=== PATIENT | male | born 1995 | race Caucasian/White ===

== ENCOUNTER 2017-05-26 09:26 | Inpatient (IN) | payer OTHER ==
[2017-05-26 12:21] VITALS: BMI 22.4
--- NOTE | 2017-05-26 15:35 | HP ---
COWS - Scale Resting Pulse: 1= [place] 81-100 Sweatin=Flushed/Facial Moisture Restless Observation: 1= Difficult to Sit Still Pupil Size: 0= Normal to Room Light Bone or Joint Aches: 2= Severe Diffuse Aches Runny Nose/ Eye Tearin= Runny Nose/Eyes GI Upset > 30mins: 1= Stomach Cramp Tremor Observation: 2= Slight Tremor Visible Yawning Observation: 2= >3x During Session Anxiety or Irritability: 2=Irritable/Anxious Goose Flesh Skin: 3=Piloerection COWS Score: 18 Admission ROS S - HPI Chief Complaint: I need to stop and get my life back. Allergies/Adverse Reactions: Allergies Allergy/AdvReac Type Severity Reaction Status Date / Time No Known Allergies Allergy Verified 05/26/17 15:30 History of Present Illness: Pt is a 21yr old male with a history of oxycodone dependence seeking detox for treatment. Exam Limitations: No Limitations - Ebola screening Have you traveled outside of the country in the last 21 days: No Have you had contact with anyone from an Ebola affected area: No Have you been sick,other than usual withdrawal symptoms: No Do you have a fever: No - Review of Systems Constitutional: Chills, Diaphoresis, Loss of Appetite, Night Sweats, Changes in sleep EENT: reports: Tearing, Nose Congestion Respiratory: reports: No Symptoms reported Cardiac: reports: No Symptoms Reported GI: reports: Constipated, Poor Fluid Intake, Indigestion : reports: No Symptoms Reported Musculoskeletal: reports: Back Pain, Joint Pain, Muscle Pain Integumentary: reports: Flushing, Sweating Neuro: reports: Tingling, Tremors Endocrine: reports: Excessive Sweating, Flushing, Intolerance to Cold, Intolerance to Heat Hematology: reports: No Symptoms Reported Psychiatric: reports: Judgement Intact, Mood/Affect Appropiate, Orientated x3, Agitated, Anxious Other Systems: Reviewed and Negative Patient History - Patient Medical History Hx Anemia: No Hx Asthma: No Hx Chronic Obstructive Pulmonary Disease (COPD): No Hx Cancer: No Hx Cardiac Disorders: No Hx Congestive Heart Failure: No Hx Hypertension: No Hx Hypercholesterolemia: No Hx Pacemaker: No HX Cerebrovascular Accident: No Hx Seizures: No Hx Dementia: No Hx Diabetes: No Hx Gastrointestinal Disorders: No Hx Liver Disease: No Hx Genitourinary Disorders: No Hx Sexually Transmitted Disorders: No Hx Renal Disease (ESRD): No Hx Thyroid Disease: No Hx Human Immunodeficiency Virus (HIV): No (negative) Hx Hepatitis C: No (negative) Hx Depression: Yes Hx Suicide Attempt: No (denies) Hx Bipolar Disorder: No Hx Schizophrenia: No Other Medical History: anxiety/insomnia - Patient Surgical History Past Surgical History: No - PPD History Previous Implant?: Yes Documented Results: Negative w/o proof Implanted On Prior R Admission?: No PPD to be Administered?: Yes - Reproductive History Patient is a Female of Child Bearing Age (11 -55 yrs old): No - Smoking Cessation Smoking history: Current every day smoker Have you smoked in the past 12 months: Yes Aproximately how many cigarettes per day: 20 Hx Chewing Tobacco Use: No Initiated information on smoking cessation: Yes 'Breaking Loose' booklet given: 05/26/17 - Substance & Tx. History Hx Alcohol Use: No Hx Substance Use: Yes Substance Use Type: Opiates Hx Substance Use Treatment: No (never in detox. this is his first time.) - Substances Abused OXYCODONE Route: Oral Frequency: Daily Amount used: 6-7 30MG TABS Age of first use: 18 Date of Last Use: 05/25/17 Family Disease History - Family Disease History Family History: Denies Admission Physical Exam BHS - Vital Signs Vital Signs: Vital Signs - 24 hr 05/26/17 12:19 Temperature 97.4 F L Pulse Rate 83 Respiratory 20 Rate Blood Pressure 120/80 - Physical General Appearance: Yes: Appropriately Dressed, Moderate Distress, Tremorous, Irritable, Sweating, Anxious HEENTM: Yes: Hearing grossly Normal, Normal Voice, Nasal Congestion, Rhinorrhea Respiratory: Yes: Lungs Clear, Normal Breath Sounds, No Respiratory Distress Neck: Yes: Within Normal Limits Breast: Yes: Within Normal Limits Cardiology: Yes: Regular Rhythm, Regular Rate, S1, S2 Abdominal: Yes: Normal Bowel Sounds, Non Tender, Soft Genitourinary: Yes: Within Normal Limits Back: Yes: Normal Inspection Musculoskeletal: Yes: Back pain, Muscle Pain Extremities: Yes: Normal Inspection, Tremors Neurological: Yes: Fully Oriented, Alert, Normal Response Integumentary: Yes: Normal Color, Diaphoresis Lymphatic: Yes: Within Normal Limits - Diagnostic (1) Nicotine dependence Current Visit: Yes Status: Chronic Qualifiers: Nicotine product type: cigarettes Substance use status: uncomplicated Qualified Code(s): F17.210 - Nicotine dependence, cigarettes, uncomplicated (2) Opioid dependence with withdrawal Current Visit: Yes Status: Chronic (3) Insomnia Current Visit: Yes Status: Acute Cleared for Admission [facility] - Detox or Rehab [facility] Level of Care: Medically Managed Detox Regimen/Protocol: Methadone [facility] Breath Alcohol Content Breath Alcohol Content: 0 Urine Drug Screen - Results Drug Screen Negative: No Urine Drug Screen Results: OXY-Oxycodone
[2017-05-26] MEDS ORDERED: MAGNESIUM HYDROX 2400MG/30ML ORAL SUSPENSION 30 ML CUP PO PRN (15:46)
[2017-05-26] MEDS ORDERED: MENTHOL/PHENOL 1 EACH UD MM PRN (15:46)
[2017-05-26] MEDS ORDERED: P-EPHED 60MG/TRIPROLIDI 2.5MG TABLET PO PRN (15:46)
[2017-05-26] MEDS ORDERED: MAGNESIUM CITRATE 300 ML BOTTLE PO PRN (15:46)
[2017-05-26] MEDS ORDERED: LOPERAMIDE HCL 2 MG CAPSULE PO PRN (15:46)
[2017-05-26] MEDS ORDERED: guaiFENesin/D-METHORPHAN HB 10 ML UNIT-DOSE CUPS PO PRN (15:46)
[2017-05-26] MEDS ORDERED: MAG HYDROX/AL HYDROX/SIMETH 30 ML UNIT-DOSE CUP PO PRN (15:46)
[2017-05-26] MEDS ORDERED: IBUPROFEN 400 MG TABLET (FP) PO PRN (15:46)
[2017-05-26] MEDS ORDERED: METHADONE HCL 10 MG TABLET (FOR DETOX USE ONLY) PO ONE ×2 (15:52→23:00)
[2017-05-26] MEDS: ACETAMINOPHEN 325 MG TABLET (FP) PO PRN (17:08)
[2017-05-26] MEDS: diazePAM 5 MG TABLET PO PRN ×2 (17:09→22:04)
[2017-05-26 17:47] LABS: URINE APPEARANCE CLEAR; URINE BILIRUBIN NEGATIVE (NEGATIVE); URINE BLOOD NEGATIVE (NEGATIVE); URINE COLOR YELLOW; URINE GLUCOSE (UA) NEGATIVE (NEGATIVE); URINE KETONE TRACE (NEGATIVE); URINE LEUK ESTERASE NEGATIVE (NEGATIVE); URINE NITRITE NEGATIVE (NEGATIVE); URINE PROTEIN NEGATIVE (NEGATIVE); URINE UROBILINOGEN NEGATIVE mg/dL (0.2-1.0)
[2017-05-26] MEDS: THIAMINE HCL 100 MG TABLET (FP) PO SCH (22:04)
[2017-05-26] MEDS: diphenhydrAMINE HCL 50 MG CAPSULE PO PRN (22:05)
[2017-05-26] MEDS: NICOTINE POLACRILEX 4 MG GUM BUC PRN (23:14)
[2017-05-27] MEDS: diazePAM 5 MG TABLET PO PRN ×4 (05:44→18:40)
--- NOTE | 2017-05-27 08:51 | CONSULT ---
[facility] Psychiatric Consult - Data Date of interview: 05/27/17 Admission source: [facility] Identifying data: This is 21 years old male with nopsychiatric hospiotalization history intoxicated with: Opioids and Nicotine Substance Abuse History: - Smoking Cessation. Smoking history: Current every day smoker. Have you smoked in the past 12 months: Yes. Aproximately how many cigarettes per day: 20. Hx Chewing Tobacco Use: No. Initiated information on smoking cessation: Yes. 'Breaking Loose' booklet given: 05/26/17. - Substance & Tx. History. Hx Alcohol Use: No. Hx Substance Use: Yes. Substance Use Type : Opiates. Hx Substance Use Treatment: No (never in detox. this is his first time.). - Substances Abused. OXYCODONE. Route: Oral. Frequency: Daily. Amount used: 6-7 30MG TABS. Age of first use: 18. Date of Last Use: 05/25/17 Medical History: Denies significant medical issues Psychiatric History: Patient reports unclear Bipolar Disorder Hisotry, reports no medicationsd taking prior to admission Physical/Sexual Abuse/Trauma History: Denies Additional Comment: Observation. Detox Unit Care Protocol Mental Status Exam - Mental Status Exam Alert and Oriented to: Person Cognitive Function: Fair Patient Appearance: Unkempt Mood: Sad Affect: Mood Congruent Patient Behavior: Cooperative Speech Pattern: Appropriate Voice Loudness: Mildly Soft/Quiet Thought Process: Circumstantial Thought Disorder: Being Controlled Hallucinations: Denies Suicidal Ideation: Denies Homicidal Ideation: Denies Insight/Judgement: Fair Sleep: Difficulty falling asleep Appetite: Weight loss Muscle strength/Tone: Mild Hypotonicity Gait/Station: Shuffling Additional Comments: - Smoking Cessation. Smoking history: Current every day smoker. Have you smoked in the past 12 months: Yes. Aproximately how many cigarettes per day: 20. Hx Chewing Tobacco Use: No. Initiated information on smoking cessation: Yes. 'Breaking Loose' booklet given: 05/26/17. - Substance & Tx. History. Hx Alcohol Use: No. Hx Substance Use: Yes. Substance Use Type : Opiates. Hx Substance Use Treatment: No (never in detox. this is his first time.). - Substances Abused. OXYCODONE. Route: Oral. Frequency: Daily. Amount used: 6-7 30MG TABS. Age of first use: 18. Date of Last Use: 05/25/17 Psychiatric Findings - Problem List ([place] 1, 2,3) (1) Nicotine dependence Current Visit: Yes Status: Chronic Qualifiers: Nicotine product type: cigarettes Substance use status: uncomplicated Qualified Code(s): F17.210 - Nicotine dependence, cigarettes, uncomplicated (2) Opioid dependence with withdrawal Current Visit: Yes Status: Chronic (3) Bipolar disorder Current Visit: Yes Status: Suspected (4) Drug-induced mood disorder Current Visit: Yes Status: Acute - Initial Treatment Plan Initial Treatment Plan: Observation. Detox Unit Care Protocol
[2017-05-27] MEDS ORDERED: METHADONE HCL 10 MG TABLET (FOR DETOX USE ONLY) PO ONE (10:00)
[2017-05-27 10:05] LABS: MCH 31.9 pg (25.7-33.7); MCHC 34.6 g/dl (32.0-35.9); MEAN CELL VOLUME 92.3 fl (80-96); MEAN PLT VOLUME 9.9 fl (7.5-11.1); PLATELET COUNT 156 K/MM3 (134-434); RDW 12.5 % (11.9-15.9); WHITE BLOOD COUNT 6.4 K/mm3 (4.0-10.0)
[2017-05-27] MEDS: PRENATAL VITAMINS W/ FOLIC ACID TABLET (FP) PO SCH (10:05)
[2017-05-27] MEDS: NICOTINE 21 MG/24 HOURS TOPICAL PATCH TD SCH (10:06)
[2017-05-27] MEDS: NICOTINE POLACRILEX 4 MG GUM BUC PRN ×3 (10:07→21:00)
[2017-05-27 10:09] LABS: ALBUMIN 4.5 g/dl (3.4-5.0); ANION GAP 6 (8-16); CALCIUM 9.5 mg/dL (8.5-10.1); CO2 30 mmol/L (21-32); GLUCOSE,RANDOM 97 mg/dL (74-106)
[2017-05-27 10:14] LABS: ALK PHOS 72 U/L (45-117); BILIRUBIN,TOTAL 0.5 mg/dL (0.2-1.0); CREATININE 0.8 mg/dL (0.7-1.3); SGOT/AST 21 U/L (15-37); SGPT/ALT 25 U/L (12-78); TOT PROT 7.6 g/dl (6.4-8.2)
--- NOTE | 2017-05-27 10:38 | PN ---
BHS COWS - Scale Resting Pulse: 1= [place] 81-100 Sweatin= Chills/Flushing Restless Observation: 3= Extraneous Movement Pupil Size: 0= Normal to Room Light Bone or Joint Aches: 4=Acute Joint/Muscle Pain Runny Nose/ Eye Tearin= Nasal Congestion GI Upset > 30mins: 0= None Tremor Observation of Outstretched Hands: 1= Tremor [place], Not Seen Yawning Observation: 2= >3x During Session Anxiety or Irritability: 2=Irritable/Anxious Goose Flesh Skin: 0=Smooth Skin COWS Score: 15 BHS Progress Note (SOAP) Subjective: ANXIETY,SWEATS,IRRITABILITY,INTERMITTENT SLEEP Objective: 05/27/17 10:37 Vital Signs 05/27/17 05/27/17 05/27/17 03:30 06:32 09:27 Temperature 96.1 F L 98 F Pulse Rate 65 Respiratory 18 18 Rate Blood Pressure 118/75 Laboratory Last Values WBC 6.4 K/mm3 (4.0-10.0) 05/27/17 06:00 RBC 5.07 M/mm3 (4.00-5.60) 05/27/17 06:00 Hgb 16.2 GM/dL (11.7-16.9) 05/27/17 06:00 Hct 46.8 % (35.4-49) 05/27/17 06:00 MCV 92.3 fl (80-96) 05/27/17 06:00 MCH 31.9 pg (25.7-33.7) 05/27/17 06:00 MCHC 34.6 g/dl (32.0-35.9) 05/27/17 06:00 RDW 12.5 % (11.9-15.9) 05/27/17 06:00 Plt Count 156 K/MM3 (134-434) 05/27/17 06:00 MPV 9.9 fl (7.5-11.1) 05/27/17 06:00 Sodium 140 mmol/L (136-145) 05/27/17 06:00 Potassium 4.2 mmol/L (3.5-5.1) 05/27/17 06:00 Chloride 104 mmol/L (98-107) 05/27/17 06:00 Carbon Dioxide 30 mmol/L (21-32) 05/27/17 06:00 Anion Gap 6 (8-16) L 05/27/17 06:00 BUN 15 mg/dL (7-18) 05/27/17 06:00 Creatinine 0.8 mg/dL (0.7-1.3) 05/27/17 06:00 Creat Clearance w eGFR > 60 (>60) 05/27/17 06:00 Random Glucose 97 mg/dL (74-106) 05/27/17 06:00 Calcium 9.5 mg/dL (8.5-10.1) 05/27/17 06:00 Total Bilirubin 0.5 mg/dL (0.2-1.0) 05/27/17 06:00 AST 21 U/L (15-37) 05/27/17 06:00 ALT 25 U/L (12-78) 05/27/17 06:00 Alkaline Phosphatase 72 U/L (45-117) 05/27/17 06:00 Total Protein 7.6 g/dl (6.4-8.2) 05/27/17 06:00 Albumin 4.5 g/dl (3.4-5.0) 05/27/17 06:00 Urine Color Yellow 05/26/17 17:06 Urine Appearance Clear 05/26/17 17:06 Urine pH 5.0 (5.0-8.0) 05/26/17 17:06 Ur Specific [place] 1.025 (1.005-1.025) 05/26/17 17:06 Urine Protein Negative (NEGATIVE) 05/26/17 17:06 Urine Glucose (UA) Negative (NEGATIVE) 05/26/17 17:06 Urine Ketones Trace (NEGATIVE) H 05/26/17 17:06 Urine Blood Negative (NEGATIVE) 05/26/17 17:06 Urine Nitrite Negative (NEGATIVE) 05/26/17 17:06 Urine Bilirubin Negative (NEGATIVE) 05/26/17 17:06 Urine Urobilinogen Negative mg/dL (0.2-1.0) 05/26/17 17:06 Ur Leukocyte Esterase Negative (NEGATIVE) 05/26/17 17:06 Assessment: 05/27/17 10:38 WITHDRAWAL SX Plan: CONTINUE DETOX
--- NOTE | 2017-05-27 16:37 | EKG ---
Test Reason : Blood Pressure : / mmHG Vent. Rate : 080 BPM Atrial Rate : 080 BPM P-R Int : 168 ms QRS Dur : 090 ms QT Int : 356 ms P-R-T Axes : 061 074 054 degrees QTc Int : 410 ms NORMAL SINUS RHYTHM NORMAL ECG NO PREVIOUS ECGS AVAILABLE Confirmed by PIYUSH EVANS, KYRA ([id number]) on 05/27/2017 4:37:11 PM Referred By: Binh Goldstein Confirmed By:KYRA PICKETT MD
[2017-05-27] MEDS: THIAMINE HCL 100 MG TABLET (FP) PO SCH (22:05)
[2017-05-27] MEDS: diphenhydrAMINE HCL 50 MG CAPSULE PO PRN (22:05)
[2017-05-28] MEDS: diazePAM 5 MG TABLET PO PRN ×4 (05:38→18:17)
[2017-05-28] MEDS ORDERED: METHADONE HCL 5 MG TABLET (FOR DETOX USE ONLY) PO ONE (10:00)
[2017-05-28] MEDS: PRENATAL VITAMINS W/ FOLIC ACID TABLET (FP) PO SCH (10:19)
[2017-05-28] MEDS: NICOTINE 21 MG/24 HOURS TOPICAL PATCH TD SCH (10:19)
--- NOTE | 2017-05-28 15:50 | PN ---
[facility] Progress Note Note: Psychiatry : Attending's note : Asked for re-consult. Issue : insomnia. Chart reviewed.Dr Sethi's note is appreciated. Met with patient.Doing well.Detox care in progress. No adverse events.Patient is active,cognitively intact. Unremarkable mental status.Baseline functioning.Neat. Friendly on approach.Medication-seeking (wants more benzos). Intervention : Principles of sleep hygiene discussed with the patient. Medication regimen is explained to the patient. Ambien 10 mg po hs.Ordered.Patient agrees. Patient made aware of potential for parasomnias. Discussed with nurse in charge.
[2017-05-28] MEDS: hydrOXYzine PAMOATE 50 MG CAPSULE (FP) PO PRN (17:27)
[2017-05-28] MEDS: NICOTINE POLACRILEX 4 MG GUM BUC PRN (18:19)
[2017-05-28] MEDS: ZOLPIDEM TARTRATE 10 MG TABLET (PARK CARE ONLY) PO PRN (22:04)
[2017-05-28] MEDS: THIAMINE HCL 100 MG TABLET (FP) PO SCH (22:04)
[2017-05-29] MEDS: diazePAM 5 MG TABLET PO PRN ×3 (05:41→15:07)
[2017-05-29] MEDS ORDERED: METHADONE HCL 5 MG TABLET (FOR DETOX USE ONLY) PO ONE (10:00)
[2017-05-29] MEDS: PRENATAL VITAMINS W/ FOLIC ACID TABLET (FP) PO SCH (10:03)
[2017-05-29] MEDS: NICOTINE 21 MG/24 HOURS TOPICAL PATCH TD SCH ×2 (10:03→10:41)
[2017-05-29] MEDS: NICOTINE POLACRILEX 4 MG GUM BUC PRN ×4 (10:41→22:57)
[2017-05-29] MEDS: ACETAMINOPHEN 325 MG TABLET (FP) PO PRN (10:42)
--- NOTE | 2017-05-29 15:27 | PN ---
BHS COWS - Scale Resting Pulse: 1= [place] 81-100 Sweatin= Chills/Flushing Restless Observation: 1= Difficult to Sit Still Pupil Size: 0= Normal to Room Light Bone or Joint Aches: 2= Severe Diffuse Aches Runny Nose/ Eye Tearin= Runny Nose/Eyes GI Upset > 30mins: 1= Stomach Cramp Tremor Observation of Outstretched Hands: 2= Slight Tremor Visible Yawning Observation: 1= 1-2x During Session Anxiety or Irritability: 2=Irritable/Anxious Goose Flesh Skin: 0=Smooth Skin COWS Score: 13 BHS Progress Note (SOAP) Subjective: Interrupted Sleep, Tremors, Body Aches, H/A. Objective: PT. A & O X 3, OBSERVED AMBULATING ON UNIT. NO ACUTE DISTRESS. 05/29/17 15:26 Vital Signs Temperature 99.4 F 05/29/17 10:00 Pulse Rate 88 05/29/17 10:00 Respiratory Rate 20 05/29/17 10:00 Blood Pressure 116/70 05/29/17 10:00 O2 Sat by Pulse Oximetry (%) Laboratory Tests 05/26/17 05/27/17 05/27/17 17:06 06:00 06:00 WBC 6.4 RBC 5.07 Hgb 16.2 Hct 46.8 MCV 92.3 MCH 31.9 MCHC 34.6 RDW 12.5 Plt Count 156 MPV 9.9 Sodium 140 Potassium 4.2 Chloride 104 Carbon Dioxide 30 Anion Gap 6 L BUN 15 Creatinine 0.8 Creat Clearance w eGFR > 60 Random Glucose 97 Calcium 9.5 Total Bilirubin 0.5 AST 21 ALT 25 Alkaline Phosphatase 72 Total Protein 7.6 Albumin 4.5 Urine Color Yellow Urine Appearance Clear Urine pH 5.0 Ur Specific [place] 1.025 Urine Protein Negative Urine Glucose (UA) Negative Urine Ketones Trace H Urine Blood Negative Urine Nitrite Negative Urine Bilirubin Negative Urine Urobilinogen Negative Ur Leukocyte Esterase Negative RPR Titer 05/27/17 06:00 WBC RBC Hgb Hct MCV MCH MCHC RDW Plt Count MPV Sodium Potassium Chloride Carbon Dioxide Anion Gap BUN Creatinine Creat Clearance w eGFR Random Glucose Calcium Total Bilirubin AST ALT Alkaline Phosphatase Total Protein Albumin Urine Color Urine Appearance Urine pH Ur Specific [place] Urine Protein Urine Glucose (UA) Urine Ketones Urine Blood Urine Nitrite Urine Bilirubin Urine Urobilinogen Ur Leukocyte Esterase RPR Titer Nonreactive LABS NOTED. Assessment: 05/29/17 15:26 WITHDRAWAL SYMPTOMS. Plan: CONTINUE DETOX.
[2017-05-29] MEDS: hydrOXYzine PAMOATE 50 MG CAPSULE (FP) PO PRN ×2 (17:33→22:57)
[2017-05-29] MEDS: ZOLPIDEM TARTRATE 10 MG TABLET (PARK CARE ONLY) PO PRN (22:16)
[2017-05-29] MEDS: THIAMINE HCL 100 MG TABLET (FP) PO SCH (22:16)
[2017-05-30] MEDS: hydrOXYzine PAMOATE 50 MG CAPSULE (FP) PO PRN ×4 (05:15→20:57)
[2017-05-30] MEDS ORDERED: METHADONE HCL 10 MG TABLET (FOR DETOX USE ONLY) PO ONE (10:00)
[2017-05-30] MEDS: PRENATAL VITAMINS W/ FOLIC ACID TABLET (FP) PO SCH (10:09)
[2017-05-30] MEDS: NICOTINE 21 MG/24 HOURS TOPICAL PATCH TD SCH (10:09)
[2017-05-30] MEDS: NICOTINE POLACRILEX 4 MG GUM BUC PRN ×4 (10:10→21:05)
--- NOTE | 2017-05-30 15:08 | PN ---
BHS Progress Note (SOAP) Subjective: Rhinorrhea, watery eyes, restlessness, anxious Objective: 05/30/17 15:07 Last Vital Signs Temp Pulse Resp BP Pulse Ox 96.8 F L 86 18 114/71 05/30/17 14:34 05/30/17 14:34 05/30/17 14:34 05/30/17 14:34 Laboratory Tests 05/26/17 05/27/17 05/27/17 17:06 06:00 06:00 WBC 6.4 RBC 5.07 Hgb 16.2 Hct 46.8 MCV 92.3 MCH 31.9 MCHC 34.6 RDW 12.5 Plt Count 156 MPV 9.9 Sodium 140 Potassium 4.2 Chloride 104 Carbon Dioxide 30 Anion Gap 6 L BUN 15 Creatinine 0.8 Creat Clearance w eGFR > 60 Random Glucose 97 Calcium 9.5 Total Bilirubin 0.5 AST 21 ALT 25 Alkaline Phosphatase 72 Total Protein 7.6 Albumin 4.5 Urine Color Yellow Urine Appearance Clear Urine pH 5.0 Ur Specific [place] 1.025 Urine Protein Negative Urine Glucose (UA) Negative Urine Ketones Trace H Urine Blood Negative Urine Nitrite Negative Urine Bilirubin Negative Urine Urobilinogen Negative Ur Leukocyte Esterase Negative RPR Titer 05/27/17 06:00 WBC RBC Hgb Hct MCV MCH MCHC RDW Plt Count MPV Sodium Potassium Chloride Carbon Dioxide Anion Gap BUN Creatinine Creat Clearance w eGFR Random Glucose Calcium Total Bilirubin AST ALT Alkaline Phosphatase Total Protein Albumin Urine Color Urine Appearance Urine pH Ur Specific [place] Urine Protein Urine Glucose (UA) Urine Ketones Urine Blood Urine Nitrite Urine Bilirubin Urine Urobilinogen Ur Leukocyte Esterase RPR Titer Nonreactive Labs noted Assessment: 05/30/17 15:08 Withdrawal symptoms Plan: Continue detox
[2017-05-30] MEDS: THIAMINE HCL 100 MG TABLET (FP) PO SCH (22:07)
[2017-05-30] MEDS: ZOLPIDEM TARTRATE 10 MG TABLET (PARK CARE ONLY) PO PRN (22:07)
[2017-05-30] MEDS: diphenhydrAMINE HCL 50 MG CAPSULE PO PRN (23:34)
[2017-05-31] MEDS: hydrOXYzine PAMOATE 50 MG CAPSULE (FP) PO PRN ×2 (05:44→09:50)
[2017-05-31] MEDS ORDERED: METHADONE HCL 5 MG TABLET (FOR DETOX USE ONLY) PO ONE (06:00)
[2017-05-31 09:25] VITALS: BP 106/69; PULSE 82; TEMP 96.6
--- NOTE | 2017-05-31 13:21 | DS ---
[facility] Detox Discharge Summary Admission Date: 05/26/17 Discharge Date: 05/31/17 - History Present History: Opioid Dependence Pertinent Past History: Mood disorder - Physical Exam Results Vital Signs: Vital Signs Temperature 96.6 F L 05/31/17 09:24 Pulse Rate 82 05/31/17 09:24 Respiratory Rate 18 05/31/17 09:24 Blood Pressure 106/69 05/31/17 09:24 O2 Sat by Pulse Oximetry (%) Pertinent Admission Physical Exam Findings: Withdrawal sx. Laboratory Tests 05/26/17 05/27/17 05/27/17 17:06 06:00 06:00 WBC 6.4 RBC 5.07 Hgb 16.2 Hct 46.8 MCV 92.3 MCH 31.9 MCHC 34.6 RDW 12.5 Plt Count 156 MPV 9.9 Sodium 140 Potassium 4.2 Chloride 104 Carbon Dioxide 30 Anion Gap 6 L BUN 15 Creatinine 0.8 Creat Clearance w eGFR > 60 Random Glucose 97 Calcium 9.5 Total Bilirubin 0.5 AST 21 ALT 25 Alkaline Phosphatase 72 Total Protein 7.6 Albumin 4.5 Urine Color Yellow Urine Appearance Clear Urine pH 5.0 Ur Specific [place] 1.025 Urine Protein Negative Urine Glucose (UA) Negative Urine Ketones Trace H Urine Blood Negative Urine Nitrite Negative Urine Bilirubin Negative Urine Urobilinogen Negative Ur Leukocyte Esterase Negative RPR Titer 05/27/17 06:00 WBC RBC Hgb Hct MCV MCH MCHC RDW Plt Count MPV Sodium Potassium Chloride Carbon Dioxide Anion Gap BUN Creatinine Creat Clearance w eGFR Random Glucose Calcium Total Bilirubin AST ALT Alkaline Phosphatase Total Protein Albumin Urine Color Urine Appearance Urine pH Ur Specific [place] Urine Protein Urine Glucose (UA) Urine Ketones Urine Blood Urine Nitrite Urine Bilirubin Urine Urobilinogen Ur Leukocyte Esterase RPR Titer Nonreactive labs noted - Treatment Hospital Course: Detox Protocol Followed, Detoxed Safely, Responded well, Discharged Condition Good, Rehab Referral Accepted Patient has Accepted a Rehab Referral to: Referred to [facility],however he prefers [facility],Medicaid pending. - Medication Discharge Medications: Ambulatory Orders NK [No Known Home Medication] 05/26/17 - Diagnosis (1) Drug-induced mood disorder Status: Acute (2) Insomnia Status: Acute (3) Nicotine dependence Status: Chronic Qualifiers: Nicotine product type: cigarettes Substance use status: uncomplicated Qualified Code(s): F17.210 - Nicotine dependence, cigarettes, uncomplicated (4) Opioid dependence with withdrawal Status: Acute (5) Bipolar disorder Status: Suspected - AMA Did Patient Leave Against Medical Advice: No
== END 2017-05-31 09:49 | disposition home or self-care (01) | DRG 773 ==
LOC: YASAS 09:26 → Y3N 13:48
PROVIDERS: ADMIT Internal Medicine Addiction Medicine; ATTEND Internal Medicine Addiction Medicine
PROC: HZ2ZZZZ Detoxification Services for Substance Abuse Treatment (ICD-10-PCS; principal; 2017-05-26)
DX: F11.23 Opioid dependence with withdrawal (principal); F17.210 Nicotine dependence, cigarettes, uncomplicated; F19.24 Other psychoactive substance dependence with psychoactive substance-induced mood disorder; F31.9 Bipolar disorder, unspecified; G47.00 Insomnia, unspecified
CPT/HCPCS: 36415; 80053; 81003; 85027; 86593; 93005; 93010

== ENCOUNTER 2020-05-13 08:53 | Inpatient (IN) | payer OTHER ==
--- NOTE | 2020-05-13 09:26 | BHS.RME ---
Substance Use & Tx History - Substance Use History Heroin Substance amount: 10-20 bags Frequency of use: Daily Substance route: Inhalation (ex: sniffing or snorting) Date of Last Use: 05/13/20 (First use October 2019. NO OD, no Narcan) Nicotine Substance amount: one pack Frequency of use: Daily Substance route: Smoking Date of Last Use: 05/13/20 (First smoke age 14 y) - Last Treatment Date of last treatment: 2016 Treatment type: Substance Use Disorder ([facility]) Where was last treatment: Detox Physical/Psych/Mental Status - Behavior General Behavior: Increased activity (restlessness, agitation) Other Behaviors: Stereotypes - Cooperativeness Cooperativeness: Cooperative - Thinking Thought Processes: Tight Thought content: Future oriented - Physical Health Problems Is patient presently having any pain?: No Does patient presently have any injuries (include location): No Does patient currently have a fever: No COWS - Scale Resting Pulse: 0= [place] 80 or Below Sweatin= No chills or Flushing Restless Observation: 1= Difficult to Sit Still Pupil Size: 0= Normal to Room Light Bone or Joint Aches: 0= None Runny Nose/ Eye Tearin= Nasal Congestion GI Upset > 30mins: 0= None Tremor Observation: 0= None Yawning Observation: 0= None Anxiety or Irritability: 0= None Goose Flesh Skin: 0=Smooth Skin COWS Score: 2
--- NOTE | 2020-05-13 10:31 | HP ---
COWS - Scale Resting Pulse: 0= [place] 80 or Below Sweatin= No chills or Flushing Restless Observation: 1= Difficult to Sit Still Pupil Size: 0= Normal to Room Light Bone or Joint Aches: 0= None Runny Nose/ Eye Tearin= Nasal Congestion GI Upset > 30mins: 0= None Tremor Observation: 0= None Yawning Observation: 0= None Anxiety or Irritability: 0= None Goose Flesh Skin: 0=Smooth Skin COWS Score: 2 CIWA Score - Admission Criteria OASAS Guidelines: Admission for Medically Managed Detox: Requires at least one of the followin. CIWA greater than 12 2. Seizures within the past 24 hours 3. Delirium tremens within the past 24 hours 4. Hallucinations within the past 24 hours 5. Acute intervention needed for co occurring medical disorder 6. Acute intervention needed for co occurring psychiatric disorder 7. Severe withdrawal that cannot be handled at a lower level of care (continued vomiting, continued diarrhea, abnormal vital signs) requiring intravenous medication and/or fluids 8. Admitting History and Physical - Admission Chief Complaint: Mr. Bro is a 24 yo gentleman who presents to [facility] stating "I want to detox from heroin or Fentanyl". History of Present Illness: Mr. Bro is a 24 yo gentleman who presents to [facility] stating "I want to detox from heroin or Fentanyl". He was last here between May 26 and for detox. He began using hydrocondone at age 20 y and, stopped at age 22. He was sober for 2 years and then, in October 2019, relapsed to opioid use with Heroin. PMH/PSH/Legal: none Psych: no dx conditions although he thinks he is depressed and anxious SOC: lives with GF Substance Use & Tx History - Substance Use History Heroin Substance amount: 10-20 bags Frequency of use: Daily Substance route: Inhalation (ex: sniffing or snorting) Date of Last Use: 05/13/20 (First use October 2019. NO OD, no Narcan) Nicotine Substance amount: one pack Frequency of use: Daily Substance route: Smoking Date of Last Use: 05/13/20 (First smoke age 14 y) - Last Treatment Date of last treatment: 2016 Treatment type: Substance Use Disorder ([facility]IKA) Where was last treatment: Detox Search Terms: Kaden Bro, 1995 Search Date: 05/13/2020 10:30:46 AM The Drug Utilization Report below displays all of the controlled substance prescriptions, if any, that your patient has filled in the last twelve months. The information displayed on this report is compiled from pharmacy submissions to the Department, and accurately reflects the information as submitted by the pharmacies. This report was requested by: Joanna Daly | Reference #: [id number] There are no results for the search terms that you entered. History Source: Patient Limitations to Obtaining History: No Limitations - Smoking History Smoking history: Current every day smoker Have you smoked in the past 12 months: Yes Aproximately how many cigarettes per day: 20 - Alcohol/Substance Use Hx Alcohol Use: No Admission ROS BHS - HPI Allergies/Adverse Reactions: Allergies Allergy/AdvReac Type Severity Reaction Status Date / Time No Known Allergies Allergy Verified 05/13/20 10:19 Exam Limitations: No Limitations - Ebola screening Have you traveled outside of the country in the last 21 days: No Have you been sick,other than usual withdrawal symptoms: No Do you have a fever: No - Review of Systems Constitutional: Loss of Appetite EENT: reports: No Symptoms Reported Respiratory: reports: No Symptoms reported Cardiac: reports: No Symptoms Reported GI: reports: No Symptoms Reported : reports: No Symptoms Reported Musculoskeletal: reports: Back Pain Integumentary: reports: No Symptoms Reported Neuro: reports: No Symptoms reported Endocrine: reports: No Symptoms Reported Hematology: reports: No Symptoms Reported Psychiatric: reports: Anxious Patient History - Patient Medical History Hx Anemia: No Hx Asthma: No Hx Chronic Obstructive Pulmonary Disease (COPD): No Hx Cancer: No Hx Cardiac Disorders: No Hx Congestive Heart Failure: No Hx Hypertension: No Hx Hypercholesterolemia: No Hx Pacemaker: No HX Cerebrovascular Accident: No Hx Seizures: No Hx Dementia: No Hx Diabetes: No Hx Gastrointestinal Disorders: No Hx Liver Disease: No Hx Genitourinary Disorders: No Hx Sexually Transmitted Disorders: No Hx Renal Disease (ESRD): No Hx Thyroid Disease: No Hx Human Immunodeficiency Virus (HIV): No (negative) Hx Hepatitis C: No (negative) Hx Depression: Yes Hx Suicide Attempt: No (denies) Hx Bipolar Disorder: No Hx Schizophrenia: No - Patient Surgical History Past Surgical History: No - PPD History Date: 05/28/17 - Smoking Cessation Smoking history: Current every day smoker Have you smoked in the past 12 months: Yes Aproximately how many cigarettes per day: 20 Hx Chewing Tobacco Use: No Initiated information on smoking cessation: Yes 'Breaking Loose' booklet given: 05/13/20 Admission Physical Exam [facility] Physical General Appearance: Yes: Within Normal Limits, No Apparent Distress, Nourished HEENTM: Yes: Hearing grossly Normal, Normocephalic, Normal Voice Respiratory: Yes: Lungs Clear, Normal Breath Sounds Neck: Yes: Within Normal Limits, Supple Breast: Yes: Breast Exam Deferred Cardiology: Yes: Regular Rhythm, Regular Rate, S1, S2 Abdominal: Yes: Non Tender, Flat, Soft, Decreased BS Genitourinary: Yes: Other (deferred) Back: Yes: Normal Inspection Musculoskeletal: Yes: full range of Motion, Gait Steady Extremities: Yes: Normal Inspection, Non-Tender Neurological: Yes: Alert, Normal Response Integumentary: Yes: Normal Color, Dry, Warm - Diagnostic (1) Opioid dependence with withdrawal Current Visit: No Status: Acute (2) Nicotine dependence Current Visit: Yes Status: Acute Qualifiers: Cleared for Admission [facility] - Detox or Rehab [facility] Level of Care: Medically Managed Detox Regimen/Protocol: Methadone Urine Drug Screen - Test Device Lot number: [id number] Expiration date: 07/08/21 - Control Is test valid?: Yes - Results Drug screen NEGATIVE: No Urine drug screen results: FEN-Fentanyl, MOP-Opiates, MTD-Methadone Inpatient Rehab Admission - Rehab Decision to Admit Inpatient rehab admission?: No
[2020-05-13] MEDS ORDERED: BISMUTH SUBSALICYLATE 524 MG/30 ML UD PO PRN (10:56)
[2020-05-13] MEDS ORDERED: cloNIDine HCL 0.1 MG TABLET PO PRN (10:56)
[2020-05-13] MEDS ORDERED: MENTHOL/PHENOL 1 EACH UD MM PRN (10:56)
[2020-05-13] MEDS ORDERED: MAGNESIUM CITRATE 300 ML BOTTLE PO PRN (10:56)
[2020-05-13] MEDS ORDERED: IBUPROFEN 400 MG TABLET (FP) PO PRN (10:56)
[2020-05-13] MEDS ORDERED: MAG HYDROX/AL HYDROX/SIMETH 30 ML UNIT-DOSE CUP PO PRN (10:56)
[2020-05-13] MEDS ORDERED: ONDANSETRON *ODT* 4 MG TABLET SL PRN (10:56)
[2020-05-13] MEDS ORDERED: MAGNESIUM HYDROX 2400MG/30ML ORAL SUSPENSION 30 ML CUP PO PRN (10:56)
[2020-05-13] MEDS ORDERED: ACETAMINOPHEN 325 MG TABLET (FP) PO PRN ×2 (10:56)
[2020-05-13 11:13] VITALS: BMI 25.7
[2020-05-13] MEDS ORDERED: METHADONE HCL 10 MG TABLET (FOR DETOX USE ONLY) PO ONE (11:30)
--- NOTE | 2020-05-13 11:44 | CONSULT ---
[facility] Psychiatric Consult - Data Date of interview: 05/13/20 Admission source: Self-referred Identifying data: Mr Bro is a 24 years old single male, unemployed receiving unemployment, living with girlfriend seeking detox treatment for opioid Substance Abuse History: Reports history of heroin and fentanyl use. Refer to addiction counselor's summary for further information Medical History: Unremarkable. Smokes cigarettes 1 ppd Psychiatric History: Denies history of previous psychiatric treatment. However, reports that he has been feeling depressed since October 2019 when he started doing heroin. At present, reports feeling depressed, anxious and sleeping poorly Physical/Sexual Abuse/Trauma History: Denies history of abuse as a child or DV relationship as an adult Mental Status Exam - Mental Status Exam Alert and Oriented to: Time, Place, Person Cognitive Function: Fair Patient Appearance: Well Groomed Mood: Depressed, Anxious Patient Behavior: Cooperative Speech Pattern: Clear Voice Loudness: Normal Thought Process: Intact, Goal Oriented Thought Disorder: Not Present Hallucinations: Denies Suicidal Ideation: Denies Homicidal Ideation: Denies Insight/Judgement: Poor Sleep: Poorly Appetite: Fair Muscle strength/Tone: Normal Gait/Station: Normal Psychiatric Findings - Problem List ([place] 1, 2,3) (1) Substance induced mood disorder Current Visit: Yes Status: Acute (2) Substance-induced sleep disorder Current Visit: Yes Status: Acute (3) Opioid dependence with withdrawal Current Visit: No Status: Acute (4) Nicotine dependence Current Visit: Yes Status: Chronic Qualifiers: - Initial Treatment Plan Initial Treatment Plan: 1) Start Vistaril 50 mg po Q 4hrs prn for anxiety and Melatonin 5 mg po HS prn for insomnia. 2) Continue inpatient detoxification
[2020-05-13] MEDS ORDERED: TUBERCULIN PPD 5 TU/0.1ML VIAL ID ONE (12:06)
--- NOTE | 2020-05-13 12:10 | EKG ---
Test Reason : Blood Pressure : / mmHG Vent. Rate : 065 BPM Atrial Rate : 065 BPM P-R Int : 170 ms QRS Dur : 100 ms QT Int : 380 ms P-R-T Axes : 066 063 042 degrees QTc Int : 395 ms NORMAL SINUS RHYTHM NORMAL ECG WHEN COMPARED WITH ECG OF 26-MAY-2017 16:17, NO SIGNIFICANT CHANGE WAS FOUND Confirmed by Shalini Sharp ([id number]) on 05/13/2020 12:10:28 PM Referred By: Confirmed By:Shalini Sharp
[2020-05-13] MEDS: NICOTINE 21 MG/24 HOURS TOPICAL PATCH TD SCH (12:14)
[2020-05-13] MEDS: PRENATAL VITAMINS W/ FOLIC ACID TABLET (FP) PO SCH (12:14)
[2020-05-13] MEDS: NICOTINE POLACRILEX 2 MG GUM BUC PRN (13:00)
[2020-05-13] MEDS ORDERED: hydrOXYzine PAMOATE 25 MG CAPSULE (FP) PO SCH (14:00)
[2020-05-13 14:50] LABS: HEMATOCRIT 44.3 % (35.4-49); HEMOGLOBIN 14.8 GM/dL (11.7-16.9); MCHC 33.4 g/dl (32.0-35.9); MEAN CELL VOLUME 92.9 fl (80-96); MEAN PLT VOLUME 9.1 fl (7.5-11.1); PLATELET COUNT 159 K/MM3 (134-434); RBC 4.77 M/mm3 (4.00-5.60); RDW 12.6 % (11.9-15.9); WHITE BLOOD COUNT 7.2 K/mm3 (4.0-10.0)
[2020-05-13 15:14] LABS: POTASSIUM 4.1 mmol/L (3.5-5.1)
[2020-05-13 15:24] LABS: ALBUMIN 4.4 g/dl (3.4-5.0); BLOOD UREA NITROGEN 11.6 mg/dL (7-18); CALCIUM 9.3 mg/dL (8.5-10.1); TOT PROT 7.1 g/dl (6.4-8.2)
[2020-05-13] MEDS: hydrOXYzine PAMOATE 50 MG CAPSULE (FP) PO PRN ×2 (15:41→22:31)
[2020-05-13] MEDS ORDERED: THIAMINE HCL 100 MG TABLET (FP) PO SCH (22:00)
[2020-05-13] MEDS ORDERED: MELATONIN 5 MG TABLETS PO SCH (22:00)
[2020-05-13] MEDS: METHOCARBAMOL 500 MG TABLET PO PRN (22:31)
[2020-05-14] MEDS: hydrOXYzine PAMOATE 50 MG CAPSULE (FP) PO PRN ×2 (02:34→08:53)
[2020-05-14] MEDS: METHOCARBAMOL 500 MG TABLET PO PRN (03:49)
[2020-05-14] MEDS ORDERED: METHADONE HCL 10 MG TABLET (FOR DETOX USE ONLY) ONE (08:42)
[2020-05-14] MEDS ORDERED: METHADONE HCL 5 MG TABLET (FOR DETOX USE ONLY) ONE (08:42)
[2020-05-14] MEDS: NICOTINE POLACRILEX 2 MG GUM BUC PRN (08:54)
[2020-05-14] MEDS ORDERED: METHADONE (DETOX) 20 MG, METHADONE (DETOX) 5 MG PO ONE (10:00)
[2020-05-14] MEDS: NICOTINE 21 MG/24 HOURS TOPICAL PATCH TD SCH (10:01)
[2020-05-14] MEDS: PRENATAL VITAMINS W/ FOLIC ACID TABLET (FP) PO SCH (10:01)
[2020-05-14] MEDS ORDERED: diazePAM 5 MG TABLET PO PRN ×2 (10:04→10:15)
--- NOTE | 2020-05-14 10:10 | PN ---
BHS COWS - Scale Resting Pulse: 1= [place] 81-100 Sweatin= Chills/Flushing Restless Observation: 3= Extraneous Movement Pupil Size: 0= Normal to Room Light Bone or Joint Aches: 4=Acute Joint/Muscle Pain Runny Nose/ Eye Tearin= None GI Upset > 30mins: 0= None Tremor Observation of Outstretched Hands: 1= Tremor [place], Not Seen Yawning Observation: 0= None Anxiety or Irritability: 2=Irritable/Anxious Goose Flesh Skin: 0=Smooth Skin COWS Score: 12 BHS Progress Note (SOAP) Subjective: Pt is a 24 y/o male admitted to detox for heroin withdrawal sx. Pt is on methadone regimen. pt has been extremely anxious since admission and requesting for valium to calm him down. Pt states he wants to stay in treatment but too agitated to focus and might have to leave. Pt pacing up and down and unsettled. spoke to patient encouraging verbalization of reasons for anxiety and need for solution oriented goals. Objective: 05/14/20 10:09 Vital Signs - 24 hr 05/13/20 05/13/20 05/13/20 11:11 11:13 12:07 Temperature 97.2 F L 97.1 F L Pulse Rate 68 72 Respiratory 16 18 Rate Blood Pressure 131/71 112/64 O2 Sat by Pulse 98 96 Oximetry (%) 05/13/20 05/13/20 05/14/20 17:27 20:35 06:15 Temperature 98.3 F 98.3 F 98.4 F Pulse Rate 63 66 81 Respiratory 18 18 18 Rate Blood Pressure 108/59 L 106/69 116/75 O2 Sat by Pulse 95 95 97 Oximetry (%) Laboratory Tests 05/13/20 05/13/20 05/13/20 11:15 11:15 11:15 WBC 7.2 RBC 4.77 Hgb 14.8 Hct 44.3 MCV 92.9 MCH 31.0 MCHC 33.4 RDW 12.6 Plt Count 159 MPV 9.1 Sodium 142 Potassium 4.1 Chloride 106 Carbon Dioxide 27 Anion Gap 9 BUN 11.6 Creatinine 1.0 Est GFR (CKD-EPI)AfAm 119.86 Est GFR (CKD-EPI)NonAf 103.41 Random Glucose 100 Calcium 9.3 Total Bilirubin 1.0 AST 12 L ALT 18 Alkaline Phosphatase 67 Total Protein 7.1 Albumin 4.4 Syphilis Serology Non-reactive covid-19 result pending Assessment: 05/14/20 10:10 withdrawal sx Plan: cont detox increase po fluids maintain safety add valium 5 mg po Q4h prn for anxiety/withdrawal sx
--- NOTE | 2020-05-14 11:43 | DS ---
[facility] Detox Discharge Summary Admission Date: 05/13/20 Discharge Date: 05/14/20 - History Present History: Opioid Dependence Additional Comments: Pt declined to stay in treatment. States "cos i feel like i have things i got to get back to. i wanan see my girlfriend and my family". All interventions discussed and put in place for patient to stay in treatment was unsuccessful as patient changed his mind several times after each episode of interventional encounter. pt was seen by his counselor, Ms Sebastián Hunter. Pertinent Past History: Depression - Physical Exam Results Vital Signs: Vital Signs Temperature 98.4 F 05/14/20 06:15 Pulse Rate 81 05/14/20 06:15 Respiratory Rate 18 05/14/20 06:15 Blood Pressure 116/75 05/14/20 06:15 O2 Sat by Pulse Oximetry (%) 97 05/14/20 06:15 Alert o x 3 but anxious to leave treatment program nad oob ambulating with steady gait cardiac:s1 s2,rrr lungs:ctab abdomen:soft,+bs,nt,flat extremities;no edema, skin intact Pertinent Admission Physical Exam Findings: Laboratory Tests 05/13/20 05/13/20 05/13/20 11:15 11:15 11:15 WBC 7.2 RBC 4.77 Hgb 14.8 Hct 44.3 MCV 92.9 MCH 31.0 MCHC 33.4 RDW 12.6 Plt Count 159 MPV 9.1 Sodium 142 Potassium 4.1 Chloride 106 Carbon Dioxide 27 Anion Gap 9 BUN 11.6 Creatinine 1.0 Est GFR (CKD-EPI)AfAm 119.86 Est GFR (CKD-EPI)NonAf 103.41 Random Glucose 100 Calcium 9.3 Total Bilirubin 1.0 AST 12 L ALT 18 Alkaline Phosphatase 67 Total Protein 7.1 Albumin 4.4 Syphilis Serology Non-reactive Covid-19 result pending - Treatment Hospital Course: Discharged Condition Good, Rehab Referral Accepted Patient has Accepted a Rehab Referral to: [place], [place] - Medication Discharge Medications: Ambulatory Orders NK [No Known Home Medication] 05/26/17 - Diagnosis (1) Substance induced mood disorder Status: Acute (2) Substance-induced sleep disorder Status: Acute (3) Nicotine dependence Status: Acute Qualifiers: Nicotine product type: cigarettes Substance use status: in withdrawal Qualified Code(s): F17.213 - Nicotine dependence, cigarettes, with withdrawal (4) Opioid dependence with withdrawal Status: Acute - AMA Did Patient Leave Against Medical Advice: Yes (AMA)
[2020-05-14 12:35] VITALS: BP 119/73; PULSE 78
[2020-05-14 14:03] VITALS: TEMP 98.9
[2020-05-15] MEDS ORDERED: METHADONE HCL 10 MG TABLET (FOR DETOX USE ONLY) PO ONE (10:00)
[2020-05-16] MEDS ORDERED: METHADONE (DETOX) 10 MG, METHADONE (DETOX) 5 MG PO ONE (10:00)
[2020-05-17] MEDS ORDERED: METHADONE HCL 10 MG TABLET (FOR DETOX USE ONLY) PO ONE (10:00)
[2020-05-18] MEDS ORDERED: METHADONE HCL 5 MG TABLET (FOR DETOX USE ONLY) PO ONE (06:00)
== END 2020-05-14 11:55 | disposition left against medical advice (07) | DRG 770 ==
LOC: YASAS 08:53 → Y5N DETOX 10:31
PROVIDERS: ADMIT Allergy & Immunology; ATTEND Allergy & Immunology
PROC: HZ2ZZZZ Detoxification Services for Substance Abuse Treatment (ICD-10-PCS; principal; 2020-05-11)
DX: F11.23 Opioid dependence with withdrawal (principal); F17.210 Nicotine dependence, cigarettes, uncomplicated; F19.282 Other psychoactive substance dependence with psychoactive substance-induced sleep disorder; F19.24 Other psychoactive substance dependence with psychoactive substance-induced mood disorder; Z56.0 Unemployment, unspecified
CPT/HCPCS: 36415; 80053; 85027; 86780; 93005; 93010; J0735; U0003